=== PATIENT | female | born 1965 | race Caucasian/White ===

== ENCOUNTER → 2020-07-30 | Outpatient (CLI) | payer BC ==
[~2020-07-30] MED LIST: ACID REDUCER 1150 MG PO; BENADRYL25 MG PO; ECOTRIN81 MG PO; ENULOSE10 GM/15 M PO; GLUCOPHAGE500 MG PO; LEXAPRO10 MG PO; LINZESS290 MCG PO; NAPROSYN500 MG PO; SYNTHROID25 MCG PO
== END ==
LOC: KOH-I 09:00
DX: M79.641 Pain in right hand (principal); M79.642 Pain in left hand; M25.551 Pain in right hip; M25.552 Pain in left hip; M19.041 Primary osteoarthritis, right hand; M19.042 Primary osteoarthritis, left hand; R93.6 Abnormal findings on diagnostic imaging of limbs
CPT/HCPCS: 73130; 73522

== ENCOUNTER 2022-01-16 08:59 | Emergency (ER) | payer SELFPAY | END 2022-01-16 10:36 | disposition home or self-care (01) | LOC: ER1 08:59 | DX: S61.412A Laceration without foreign body of left hand, initial encounter (principal); E11.9 Type 2 diabetes mellitus without complications; Z23 Encounter for immunization; Z79.82 Long term (current) use of aspirin; Z79.899 Other long term (current) drug therapy; W26.8XXA Contact with other sharp object(s), not elsewhere classified, initial encounter; Y92.89 Other specified places as the place of occurrence of the external cause; Y99.0 Civilian activity done for income or pay | CPT/HCPCS: 12001; 90471; 90715; 99282 ==